=== PATIENT | male | born 1935 | race African-American/Black ===

== ENCOUNTER 2017-05-04 13:48 | Emergency (ER) | payer MEDICARE, OTHER ==
[2017-05-04] MEDS ORDERED: MORPHINE SULFATE 10 MG/ML INJ IV ONE ×2 (14:16→15:57)
--- NOTE | 2017-05-04 14:23 | ER Document Report ---
ED Extremity Problem, Upper - General Chief Complaint: Arm Pain Stated Complaint: FALL ARM INJURY Time Seen by Provider: 05/04/17 14:13 Information source: Patient Notes: 42-year-old male status post fall onto his left shoulder after he slipped on concrete. Patient denies taking any blood thinning medications. He denies hitting his head. He denies any headache, neck pain, back pain, or lower extremity pain. - HPI Patient complains to provider of: Injury, Pain Onset: Just prior to arrival Where: Outdoors Quality of pain: [place] Severity of pain: Moderate Pain Level: 2 Context: Fall Associated symptoms: Other - See above Exacerbated by: Movement Relieved by: Rest Similar symptoms previously: No Recently seen / treated by doctor: No - Related Data Allergies/Adverse Reactions: codeine Allergy (Verified 05/04/17 14:16) Past Medical History - General Information source: Patient - Social History Smoking Status: Unknown if Ever Smoked Cigarette use (# per day): No Chew tobacco use (# tins/day): No Smoking Education Provided: No Frequency of alcohol use: None Family History: Reviewed & Not Pertinent Review of Systems - Review of Systems EENT: denies: Eye pain, Double vision Cardiovascular: denies: Chest pain, Palpitations Respiratory: denies: Cough, Short of breath Gastrointestinal: denies: Abdominal pain Neurological/Psychological: denies: Confusion, Weakness, Loss of power Physical Exam - Vital signs Vitals: Temp Pulse Resp BP Pulse Ox 98.8 F 110 H 16 164/73 H 96 05/04/17 13:50 05/04/17 13:50 05/04/17 13:50 05/04/17 13:50 05/04/17 13:50 Notes: Reviewed vital signs and nursing note as charted by RN. CONSTITUTIONAL: Alert and oriented and responds appropriately to questions. Well -appearing; well-nourished HEAD: Normocephalic; atraumatic EYES: PERRL ENT: Midface stable without lesions NECK: Supple without meningismus; non-tender CARD: Regular rate and rhythm; no murmurs, no clicks, no rubs, no gallops; symmetric distal pulses RESP: Normal chest excursion without splinting or tachypnea; breath sounds clear and equal bilaterally ABD/GI: Normal bowel sounds; non-distended; soft, non-tender BACK: The back appears normal and is non-tender to palpation EXT: Patient is holding his left arm by his side. Tenderness to the left lateral shoulder. There is no tenderness to the left elbow, forearm, wrist, or hand. Dialysis shunt in the left AC/formarm. Palpable thrill and audible bruit present NEURO: 5 out of 5 strength in the other 3 extremities PSYCH: The patient's mood and manner are appropriate. Grooming and personal hygiene are appropriate. Course - Re-evaluation Re-evalutation: 05/04/17 14:22 Given the above history and physical examination we will order an x-ray of the left shoulder and left forearm. Pain medications have been provided. I do not believe other imaging or laboratory work is necessary at this time. 05/04/17 15:57 X-ray is recorded. I have spoken to Dr. Villalobos, the orthopedic surgeon and have explained the full history, physical, dialysis status, and fracture pattern. He has asked me to place the patient in a sugar tong splint underneath the left elbow with a sling. This will not cover the access site for dialysis. Patient has not missed dialysis sessions. Dr. Villalobos states that he will be able to see the patient as an outpatient. - Vital Signs Vital signs: Temp Pulse Resp BP Pulse Ox 98.8 F 110 H 16 164/73 H 96 05/04/17 13:50 05/04/17 13:50 05/04/17 13:50 05/04/17 13:50 05/04/17 13:50 Discharge - Discharge Clinical Impression: Left humeral fracture Qualifiers: Encounter type: initial encounter Humerus Location: proximal Fracture type: closed Fracture morphology: unspecified fracture morphology Qualified Code(s): S42.202A - Unspecified fracture of upper end of left humerus, initial encounter for closed fracture Condition: Good Disposition: HOME, SELF-CARE Additional Instructions: Come back immediately with any increased pain, obvious weakness, discoloration to the left distal arm, or any other acute problems. Please follow-up with the orthopedic surgeon as we have discussed and have helped expedite for you. Prescriptions: Hydrocodone/Acetaminophen [[place] 5-325 Tablet] 1 each PO Q6 PRN #12 tablet PRN Reason: For Pain Referrals: SARAH RUBALCAVA MD [ACTIVE STAFF] - Follow up as needed
--- NOTE | 2017-05-04 14:27 | RADIOLOGY REPORT (SQ) ---
EXAM DESCRIPTION: SHOULDER LEFT 2 OR MORE VIEWS COMPLETED DATE/TIME: 05/04/2017 2:19 pm REASON FOR STUDY: fall with deformity COMPARISON: None. NUMBER OF VIEWS: AP view TECHNIQUE: AP view images acquired of the left shoulder. LIMITATIONS: None. FINDINGS: MINERALIZATION: Osteoporotic BONES: Acute spiral fracture left midshaft humerus with butterfly fragment. Nonangulated. Mildly di splaced. JOINTS: No glenohumeral joint dislocation or acromioclavicular joint widening VISUALIZED LUNGS AND RIBS: No pneumothorax. No rib fracture. SOFT TISSUES: No radiopaque foreign body. OTHER: No other significant finding. IMPRESSION: Acute spiral fracture mid diaphysis left humerus with butterfly fragment TECHNICAL DOCUMENTATION: JOB ID: [id number] [employer]- All Rights Reserved
[2017-05-04 15:36] VITALS: BP 164/73
--- NOTE | 2017-05-04 17:36 | RADIOLOGY REPORT (SQ) ---
EXAM DESCRIPTION: HIP LEFT AP/LATERAL COMPLETED DATE/TIME: 05/04/2017 5:22 pm REASON FOR STUDY: 14, s/p fall COMPARISON: None. NUMBER OF VIEWS: Two views. TECHNIQUE: AP and frog-leg view of the left hip. LIMITATIONS: None. FINDINGS: MINERALIZATION: There is diffuse osteopenia. 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 There is no evidence of an acute fracture or dislocation. OPPOSITE HIP: There are degenerative changes in the right hip. SOFT TISSUES: No findings. OTHER: No other significant finding. IMPRESSION: Diffuse osteopenia. There are postsurgical changes in the left hip without evidence of an acute fracture or dislocation. TECHNICAL DOCUMENTATION: JOB ID: [id number] [employer]- All Rights Reserved
== END 2017-05-04 19:00 | disposition home or self-care (01) ==
LOC: ER 13:48 → EDBD 13:48 → ER 19:00
DX: S42.202A Unspecified fracture of upper end of left humerus, initial encounter for closed fracture (principal); W01.0XXA Fall on same level from slipping, tripping and stumbling without subsequent striking against object, initial encounter; Z88.6 Allergy status to analgesic agent
CPT/HCPCS: 96376; 99284; 96374; 73502; 73030; J2270